=== PATIENT | female | born 1990 ===

== ENCOUNTER → 2021-06-07 11:05 | Outpatient (BNVA) | payer MEDICAID, SELFPAY | PROVIDERS: Family Provider Obstetrics & Gynecology; PCP Family Medicine; Visit Provider Nurse Practitioner Women's Health | DX: Z34.80 Encounter for supervision of other normal pregnancy, unspecified trimester (principal) | CPT/HCPCS: 81000 ==

== ENCOUNTER → 2021-07-05 09:32 | Outpatient (BNVA) | payer MEDICAID, SELFPAY | PROVIDERS: Family Provider Obstetrics & Gynecology; PCP Family Medicine; Visit Provider Obstetrics & Gynecology | DX: Z34.80 Encounter for supervision of other normal pregnancy, unspecified trimester (principal) | CPT/HCPCS: 80307; 81000; 84443; 85025; 86592; 86762; 86803; 86850; 86900; 87086; 87340; 87491; 87591; 87624; 87661 ==

== ENCOUNTER → 2021-07-19 09:34 | Outpatient (BNVA) | payer MEDICAID, SELFPAY | PROVIDERS: Family Provider Obstetrics & Gynecology; PCP Family Medicine; Visit Provider Obstetrics & Gynecology | DX: Z34.90 Encounter for supervision of normal pregnancy, unspecified, unspecified trimester (principal) | CPT/HCPCS: 84315; 87086 ==

== ENCOUNTER → 2021-08-10 13:18 | Outpatient (BNVA) | payer MEDICAID, SELFPAY | PROVIDERS: Family Provider Obstetrics & Gynecology; PCP Family Medicine; Visit Provider Obstetrics & Gynecology | DX: Z34.90 Encounter for supervision of normal pregnancy, unspecified, unspecified trimester (principal) | CPT/HCPCS: 84315; 87086 ==

== ENCOUNTER → 2021-10-12 15:10 | Outpatient (BNVA) | payer MEDICAID, SELFPAY | PROVIDERS: Family Provider Obstetrics & Gynecology; PCP Family Medicine; Visit Provider Obstetrics & Gynecology | DX: Z34.90 Encounter for supervision of normal pregnancy, unspecified, unspecified trimester (principal) | CPT/HCPCS: 84315; 87086 ==

== ENCOUNTER → 2021-11-02 08:22 | Outpatient (BNVA) | payer MEDICAID, SELFPAY | PROVIDERS: Family Provider Obstetrics & Gynecology; PCP Family Medicine; Visit Provider Obstetrics & Gynecology | DX: O21.9 Vomiting of pregnancy, unspecified (principal); O20.9 Hemorrhage in early pregnancy, unspecified; Z3A.00 Weeks of gestation of pregnancy not specified | CPT/HCPCS: 82950; 84315; 84443; 85025; 87086 ==

== ENCOUNTER → 2021-11-19 07:57 | Outpatient (BNVA) | payer MEDICAID, SELFPAY | PROVIDERS: Family Provider Obstetrics & Gynecology; PCP Family Medicine; Visit Provider Obstetrics & Gynecology | DX: Z34.80 Encounter for supervision of other normal pregnancy, unspecified trimester (principal) | CPT/HCPCS: 82951; 82952; 84315; 87086; 87106 ==

== ENCOUNTER → 2021-12-05 14:10 | Outpatient (BNVA) | payer MEDICAID, SELFPAY | PROVIDERS: Family Provider Obstetrics & Gynecology; PCP Family Medicine; Visit Provider Obstetrics & Gynecology | DX: Z34.80 Encounter for supervision of other normal pregnancy, unspecified trimester (principal) | CPT/HCPCS: 84315; 87086 ==

== ENCOUNTER → 2021-12-27 09:09 | Outpatient (BNVA) | payer MEDICAID, SELFPAY | PROVIDERS: Family Provider Obstetrics & Gynecology; PCP Family Medicine; Visit Provider Obstetrics & Gynecology | DX: Z34.90 Encounter for supervision of normal pregnancy, unspecified, unspecified trimester (principal) | CPT/HCPCS: 84315; 87081; 87086 ==

== ENCOUNTER → 2022-01-02 13:13 | Outpatient (BNVA) | payer MEDICAID, SELFPAY | PROVIDERS: Family Provider Obstetrics & Gynecology; PCP Family Medicine; Visit Provider Obstetrics & Gynecology | DX: Z34.90 Encounter for supervision of normal pregnancy, unspecified, unspecified trimester (principal) | CPT/HCPCS: 84315; 87086 ==

== ENCOUNTER 2022-01-16 10:56 | Inpatient (IN) | payer MEDICAID, SELFPAY ==
[2022-01-16] VITALS (46 sets, daily range): BP systolic 119–182; BP diastolic 65–104; PULSE 69–95; RESP 16–18; TEMP 35.7–36.8; BMI 34.7
[2022-01-16 08:50] LABS: Actim Prom Negative
--- NOTE | 2022-01-16 09:23 | US_ITS ---
WS: [id number] ULTRASOUND OB LIMITED TECHNIQUE: Limited ultrasound examination of the fetus. CLINICAL INFORMATION: Vaginal Discharge COMPARISON: October 10, 2021 FINDINGS: Cervix is closed measuring 3.6 cm Single interuterine gestation. presentation is vertex Placental location is fundal. Placenta grade: 2 heart rate 131 BPM. Significantly decreased STEPHEN 3.6 cm. US/US OB limited [id number] IMPRESSION: 1. Cervix is closed measuring 3.6 CM. 2. Significantly decreased amniotic fluid volume measuring 3.6 cm, below the 2.5 percentile for gestational age compatible with oligohydramnios 3. presentation is vertex. 4. Placenta is fundal.
[2022-01-16 09:26] LABS: Basophils % 0.2 %; Eosinophils # 0.1 10^3/uL (0.0-0.8); Eosinophils % 0.7 %; Hematocrit 34.6 % (37.0-47.0); Hemoglobin 11.4 g/dL (11.5-15.3); Lymphocytes % 20.8 %; Mean Corpuscular HGB Conc 32.9 g/dL (30.0-36.0); Mean Corpuscular Hemoglobin 27.1 pg (28.0-34.0); Mean Corpuscular Volume 82.2 fl (81-99); Mean Platelet Volume 10.7 fL (7.4-10.4); Monocytes # 0.4 10^3/uL (0.2-0.9); Monocytes % 4.4 %; Neutrophils # 7.15 10^3/uL (1.8-7.7); Neutrophils % 73.6 %; Nucleated Red Blood Cells % 0 %; Platelet Count 362 10^3/cmm (130-400); Red Blood Count 4.21 10^6/uL (4.1-5.3); White Blood Count 9.7 10^3/uL (4.0-10.0)
[2022-01-16 09:29] LABS: Urine Color Yellow (Yellow)
[2022-01-16 09:30] LABS: Add Urine Microscopic? YES; Bilirubin Urine Neg (Negative); Blood Urine 2+ (Negative); Glucose Urine UA Norm (Normal); Ketones Urine Negative (Negative); Leukocyte Esterase Urine 1+ (Negative); Nitrate Urine Negative (Negative); Protein Urine Neg (Negative); Specific Gravity, Urine 1.005 (1.005-1.030); Urine Appearance Clear (CLEAR); Urobilinogen Urine Norm (Negative); pH Urine 7 (5-7)
[2022-01-16 09:32] LABS: Bacteria Urine 1+ /hpf; Mucus Urine 1+ /hpf; RBC Urine 0-4 /hpf (0-2); WBC Urine 0-4 /hpf (0-5)
[2022-01-16 09:33] LABS: Add Urine Culture? No
[2022-01-16 10:08] LABS: Albumin Level 3.5 g/dL (3.5-5.2); Alkaline Phosphatase 168 IU/L (35-105); Blood Urea Nitrogen 9 mg/dL (6-20); Calcium 8.9 mg/dL (8.5-10.5); Carbon Dioxide 20 mmol/L (22-29); Chloride 100 mmol/L (98-107); Globulin 3.8 g/dL (1.3-4.6); Glomerular Filtration Rate 143.9 mL/min (90-130); Glucose 71 mg/dL (65-115); Osmolality Calculated 269 mOsm/kg (285-295); Sodium 131 mmol/L (136-145); Total Bilirubin 0.2 mg/dL (0.15-1.2); Total Protein 7.3 g/dL (6.6-8.7); Uric Acid 4.7 mg/dL (2.4-5.7)
[2022-01-16 10:13] LABS: Alanine Aminotransferase 28 U/L (0-33); Anion Gap 15.4 (5-19); Aspartate Amino Transferase 39 U/L (0-32); Potassium 4.4 mmol/L (3.5-5.1)
[2022-01-16 10:49] LABS: Urine Creatinine 166 mg/dL (28-217)
[2022-01-16 10:50] LABS: UPRO/UCREAT Ratio 0.13 mg/mg CR; Urine Protein Random 22 mg/dL
[2022-01-16 12:02] LABS: Amphetamines Screen Urine Negative (Negative); Barbiturates Screen Urine Negative (Negative); Benzodiazepines Screen Urine Negative (Negative); Cocaine Screen Urine Negative (Negative); Opiate Screen Urine Negative (Negative); PCP Screen Urine Negative (Negative); THC Screen Urine Positive (Negative)
--- NOTE | 2022-01-16 12:06 | PM.OPHPUD ---
Labor & Delivery H&P Update Date of Procedure: January 16, 2022 Date H&P Performed: 01/10/22 H&P update information: I have reviewed H&P completed within last 30 days, I have examined patient prior to procedure and Changes to prior documentation as noted here Changes to previous documentation: The patient presents for PROM at 38w6d. She reports she had a gush at 5:00 am this morning. Testing was negative, however several gushes of fluid were noted by nurse and ultrasound shows oligohydramnios at 3 cm. She will be admitted for augmentation of labor. cervix ./ status is overall very reassuring. Admission Diagnosis:
[2022-01-16] MEDS: miSOPROStol 100 mcg tablet 25 MCG VAGINAL ×2 (12:12→16:15)
[2022-01-16] MEDS: dextrose 5%-lactated ringers 1,000 ML 125 ML IV (21:32)
[2022-01-16] MEDS: oxytocin 30 UNIT/500 ML BAG IV (21:39)
[2022-01-16] MEDS: ampicillin 2,000 MG in sodium chloride 0.9% (plus) 50 ML 100 MG IV (23:51)
[2022-01-17] VITALS (30 sets, daily range): BP systolic 108–153; BP diastolic 53–96; PULSE 65–99; RESP 15–18; TEMP 36.7–37.1
[2022-01-17] MEDS: ondansetron 2 mg/ML SDV 2 mL 4 MG IVP (01:09)
[2022-01-17] MEDS: fentaNYL 50 mcg/mL INJ 2mL IVP (02:03)
[2022-01-17] MEDS: metoclopramide 5 mg/mL SDV 2 mL 10 MG IV (02:33)
[2022-01-17] MEDS: lactated ringers 1,000 ML 999 ML IV (03:30)
--- NOTE | 2022-01-17 04:47 | P.PCNOB_ITS ---
Delivery Note: Date of delivery: January 17, 2022 Pre-delivery diagnoses: Term Post-delivery diagnoses: Term delivered Procedure: Spontaneous vaginal delivery Delivering Physician: Antonio Lang MD Estimated blood loss (mL): 300 Findings: Term male infant Apgars 9/9 Pre-Delivery Course: Ms. Espinosa is a 31 year old patient with an LMP of 03/28/21, and an TIM of 01/24/22, weeks EGA who has been receiving care from [facility]. CC: Onset of labor at term. HPI: Received appropriate care. Daily vitamins since two months prior to conception. labs have all been normal, including negative for HIV. She was found to negative for Group B Strep from screening at 36 weeks. She has gained approximately 21 lbs throughout the . She denies a history of HTN during . Glucose tolerance screening for gestational diabetes was negative. Delivery: The patient was noted to be complete and pushing, so was placed in the dorsal lithotomy position, prepped and draped in the usual sterile fashion for a vaginal delivery. Pt. Noted to have no epidural anesthesia. At 0436 the patient delivered a viable termmale infant weighing 2870 g with scores of 9 and 9 at one and five minutes, respectively. The vertex was delivered spontaneously over intact perineum. The patient was asked to push and the head delivered spontaneously in the ANNA position, over an intact perineum. A nuchal cord was checked and none noted. The anterior shoulder delivered easily and the posterior shoulder followed. The remainder of the infant was easily delivered and the oropharynx and nasopharynx was bulb suctioned. The was noted to have spontaneous cry and spontaneous movement of all four extremities. The cord was clamped x 2 and cut and noted to have 2 arteries and one vein. The was passed to the mother's abdomen where nursing personnel were in attendance. Cord blood sample was then obtained. The placenta delivered intact spontaneously and the uterus was explored. 20 units of Pitocin was placed in the IV bag to firm the uterus. Examination of the cervix and vaginal vault did not reveal any lacerations. A vaginal pack was then placed. Examination of the perineum showed no lacerations. The vaginal pack was then removed. The patient tolerated this procedure well, and recovered in L&D with her in their LDR room. All sponge and needle counts were correct. History History History 4 Term 1 Miscarriages/Ectopic 2 0 Living Children 1 Coding Level of Care Code Acute Line Haul Owner Operator for Chg Beto
[2022-01-17] MEDS: ibuprofen 800 mg tablet PO ×2 (08:28→16:03)
[2022-01-17] MEDS: docusate sodium 100 mg Capsule PO (08:28)
[2022-01-17] MEDS: alum-mag-hydroxide-sime 30 mL UDC PO (08:28)
[2022-01-17] MEDS: prenatal vitamin Capsule 1 CAP PO (08:28)
--- NOTE | 2022-01-17 08:46 | PC.NURSE ---
Ambulated to room.
[2022-01-17 16:38] LABS: Hematocrit 31.2 % (37.0-47.0); Hemoglobin 10.3 g/dL (11.5-15.3); Mean Corpuscular Hemoglobin 27.2 pg (28.0-34.0); Mean Corpuscular Volume 82.5 fl (81-99); Mean Platelet Volume 10.3 fL (7.4-10.4); Platelet Count 357 10^3/cmm (130-400); Red Blood Count 3.78 10^6/uL (4.1-5.3); Red Cell Distribution Width 14.6 % (12.1-15.1); White Blood Count 16.7 10^3/uL (4.0-10.0)
--- NOTE | 2022-01-18 01:11 | PC.NURSE ---
baby found asleep with mom in bed. baby placed in crib and mom educated on safe sleeping practices at this time
[2022-01-18] MEDS: HYDROcodone-acetaminophen 5-325 mg Tablet PO (04:56)
[2022-01-18 04:58] VITALS: BP 132/86; PULSE 76; RESP 16; TEMP 36.8
[2022-01-18] MEDS: prenatal vitamin Capsule 1 CAP PO (08:36)
[2022-01-18] MEDS: ibuprofen 800 mg tablet PO ×2 (08:36→14:31)
[2022-01-18] MEDS: docusate sodium 100 mg Capsule PO (08:36)
[2022-01-18 09:05] VITALS: BP 156/116; PULSE 77; RESP 18; TEMP 36.6; O2SAT 97
[2022-01-18 16:00] VITALS: BP 135/91; PULSE 70; RESP 18; TEMP 36.9; O2SAT 98
--- NOTE | 2022-01-18 16:31 | P.DS_ITS ---
Discharge Providers SMOKING PIPE LINER Date of Admission: 01/16/22 10:56 Date of Discharge: 01/21/22 Attending Provider at Admission: Antonio Lang MD Attending Provider at Discharge: Antonio Lang MD Primary SMOKING PIPE LINER: Karla Primary Care Provider: Lyn Torre MD Reason for Visit Reason for Visit: possible ROM Brief History: Ms. Espinosa is a 31 year old patient with an LMP of 03/28/21, and an TIM of 01/24/22, Hospital Course Hospital Course Mrs. Espinosa 31-year-old female presented to L&D with PROM at 38w6d. She had a spontaneous vaginal delivery without complication, delivered term AGARS 04/05 with a birthweight of 2870 g. Information Peripartum Data: Infant Delivery Method: Vaginal Physical Exam Narrative: GA; alert and oriented x 3 HEENT: normal Breasts: engorged Nipples - skin intact Lungs; clear to auscultation Heart: regular rhythm, no murmurs. Abd: Appropriately tender. BS+. Uterine fundus below umbilicus. No Fundal Tenderness. Perineum: normal lochia. Extremities: no edema, no cyanosis, no tenderness. History History History 4 Term 1 Miscarriages/Ectopic 2 0 Living Children 1 Discharge Data Studies Completed and Pending Completed Studies During Hospitalization Category Date Time Status US OB limited [id number] Stat Ultrasound 01/16/22 09:23 Completed Radiology Impressions Obstetrics Ultrasound 01/16/22 09:23 IMPRESSION: 1. Cervix is closed measuring 3.6 CM. 2. Significantly decreased amniotic fluid volume measuring 3.6 cm, below the 2.5 percentile for gestational age compatible with oligohydramnios 3. presentation is vertex. 4. Placenta is fundal. Laboratory Results WBC 16.7 10^3/uL (4.0-10.0) H 01/17/22 16:30 RBC 3.78 10^6/uL (4.1-5.3) L 01/17/22 16:30 Hgb 10.3 g/dL (11.5-15.3) L 01/17/22 16:30 Hct 31.2 % (37.0-47.0) L 01/17/22 16:30 MCV 82.5 fl (81-99) 01/17/22 16:30 MCH 27.2 pg (28.0-34.0) L 01/17/22 16:30 MCHC 33.0 g/dL (30.0-36.0) 01/17/22 16:30 RDW 14.6 % (12.1-15.1) 01/17/22 16:30 Plt Count 357 10^3/cmm (130-400) 01/17/22 16:30 MPV 10.3 fL (7.4-10.4) 01/17/22 16:30 Neut % (Auto) 73.6 % 01/16/22 08:55 Lymph % (Auto) 20.8 % 01/16/22 08:55 [place] % (Auto) 4.4 % 01/16/22 08:55 Eos % (Auto) 0.7 % 01/16/22 08:55 Baso % (Auto) 0.2 % 01/16/22 08:55 Neut # (Auto) 7.15 10^3/uL (1.8-7.7) 01/16/22 08:55 Lymph # (Auto) 2.0 10^3/uL (0.8-4.8) 01/16/22 08:55 [place] # (Auto) 0.4 10^3/uL (0.2-0.9) 01/16/22 08:55 Eos # (Auto) 0.1 10^3/uL (0.0-0.8) 01/16/22 08:55 Baso # (Auto) 0.0 10^3/uL (0.0-0.1) 01/16/22 08:55 Nucleated RBC % (auto) 0 % 01/16/22 08:55 Nucleated RBCs # 0.0 /100WBC 01/16/22 08:55 Sodium 131 mmol/L (136-145) L 01/16/22 08:55 Potassium 4.4 mmol/L (3.5-5.1) 01/16/22 08:55 Chloride 100 mmol/L (98-107) 01/16/22 08:55 Carbon Dioxide 20 mmol/L (22-29) L 01/16/22 08:55 Anion Gap 15.4 (5-19) 01/16/22 08:55 BUN 9 mg/dL (6-20) 01/16/22 08:55 Creatinine 0.5 mg/dL (0.5-0.9) 01/16/22 08:55 GFR Calculation 143.9 mL/min (90-130) H 01/16/22 08:55 Glucose 71 mg/dL (65-115) 01/16/22 08:55 Calculated Osmolality 269 mOsm/kg (285-295) L 01/16/22 08:55 Uric Acid 4.7 mg/dL (2.4-5.7) 01/16/22 08:55 Calcium 8.9 mg/dL (8.5-10.5) 01/16/22 08:55 Total Bilirubin 0.2 mg/dL (0.15-1.2) 01/16/22 08:55 AST 39 U/L (0-32) H 01/16/22 08:55 ALT 28 U/L (0-33) 01/16/22 08:55 Alkaline Phosphatase 168 IU/L (35-105) H 01/16/22 08:55 Total Protein 7.3 g/dL (6.6-8.7) 01/16/22 08:55 Albumin 3.5 g/dL (3.5-5.2) 01/16/22 08:55 Globulin 3.8 g/dL (1.3-4.6) 01/16/22 08:55 Insulin-like GF I Negative 01/16/22 08:20 Urine Color Yellow (Yellow) 01/16/22 08:55 Urine Appearance Clear (CLEAR) 01/16/22 08:55 Urine pH 7 (5-7) 01/16/22 08:55 Ur Specific [place] 1.005 (1.005-1.030) 01/16/22 08:55 Urine Protein Neg (Negative) 01/16/22 08:55 Urine Glucose (UA) Norm (Normal) 01/16/22 08:55 Urine Ketones Negative (Negative) 01/16/22 08:55 Urine Blood 2+ (Negative) H 01/16/22 08:55 Urine Nitrate Negative (Negative) 01/16/22 08:55 Urine Bilirubin Neg (Negative) 01/16/22 08:55 Urine Urobilinogen Norm mg/dL (Negative) 01/16/22 08:55 Ur Leukocyte Esterase 1+ (Negative) H 01/16/22 08:55 Urine RBC 0-4 /hpf (0-2) H 01/16/22 08:55 Urine WBC 0-4 /hpf (0-5) H 01/16/22 08:55 Ur Squamous Epith Cells 5-10 /hpf (0-5) H 01/16/22 08:55 Amorphous Sediment Not Reportable 01/16/22 08:55 Urine Bacteria 1+ /hpf (NONE) H 01/16/22 08:55 Urine Mucus 1+ /hpf 01/16/22 08:55 U Random Total Protein 22 mg/dL 01/16/22 08:55 Urine Creatinine 166 mg/dL (28-217) 01/16/22 08:55 Protein/Creatinin Ratio 0.13 mg/mg CR 01/16/22 08:55 Urine Opiates Screen Negative ng/mL (Negative) 01/16/22 11:25 Ur Barbiturates Screen Negative ng/mL (Negative) 01/16/22 11:25 Ur Phencyclidine Scrn Negative ng/mL (Negative) 01/16/22 11:25 Ur Amphetamines Screen Negative ng/mL (Negative) 01/16/22 11:25 U Benzodiazepines Scrn Negative ng/mL (Negative) 01/16/22 11:25 Urine Cocaine Screen Negative ng/mL (Negative) 01/16/22 11:25 U Marijuana (THC) Screen Positive ng/mL (Negative) H 01/16/22 11:25 Vitals Last Vital Signs Temp 97.9 F 01/18/22 09:05 Pulse 77 01/18/22 09:05 Resp 18 01/18/22 09:05 BP 156/116 01/18/22 09:05 Pulse Ox 97 01/18/22 09:05 Discharge Plan Discharge Patient Disposition: Home Condition: Stable Prescriptions: New ibuprofen 800 mg tablet 800 mg PO TID PRN (Reason: pain) Qty: 60 0RF Iron (ferrous sulfate) 325 mg (65 mg iron) tablet 325 mg PO BID Qty: 60 0RF Colace 100 mg capsule 100 mg PO BID Qty: 60 0RF acetaminophen 325 mg capsule 325 mg PO Q4H PRN (Reason: fever or pain) Qty: 60 0RF Continued ondansetron HCl [Zofran] 4 mg tablet 4 mg PO Q6H PRN (Reason: Nausea) 0RF albuterol sulfate 90 mcg/actuation HFA aerosol inhaler 2 puff inhalation Q6H PRN (Reason: Shortness Of Breath) 0RF DHA 200 mg capsule 200 mg PO DAILY 0RF famotidine [Pepcid AC] 10 mg tablet 10 mg PO DAILY 0RF ferrous sulfate [Lindsay-Time] 325 mg (65 mg iron) tablet 325 mg PO TID 0RF Discharge Orders: Discharge Order (Routine); Ordered 01/18/22 Ordered By: Antonio Lang Referrals: Antonio Lang MD [Family Provider] - 6 Weeks Discharge Diet: Usual diet Discharge Activity: Limit activity as instructed Patient Instructions: Depression (DC), Bleeding (GEN), Preeclampsia and Eclampsia After Delivery (GEN), Breast Care for the Mother (GEN), OB Discharge Report, OB Food/Drug Interaction Guide, OB Care at Home, Opioid Safety, OB Home Care, OB Vaginal Deliveries - [facility], Abnormal Bleeding Activity Restrictions/Additional Instructions: 1. Please call [facility] on next working day to make your post appointment in 6 weeks. 2. Please stay home until you come back to the clinic on first post-operative check up. 3. Please follow instructions on your medications CAREFULLY. 4. If you have abdominal incision, do not cover it unless dressing is necessary because of drainage. OK to shower, but avoid bath. Leave steri-strips until they fall off. If they are still on one week after surgery, you may remove them. 5. If you had vaginal surgery or vaginal repair, Dr. Lang may instruct you to take SITZ bath. 6. Yellow, blood tinged odorous vaginal discharge is usually normal after hysterectomy or vaginal surgeries. 7. No sexual intercourse, tampons, or douches until you are completely released from the post-operative care. 8. Avoid constipation by eating right and maybe using some Metamucil or Milk of Magnesia. 9. All prescription refills are given during the working hours. Please do no wait till it runs out. Call the clinic at [phone] before your medication runs out. The clinic will get in touch with your doctor to prescribe medications if necessary. 10. Please remain within 40 mile radius from our hospital because emergencies do happen now and then during the post-operative period. 11. If you have stairs at home, take one step at a time slowly and minimize the number of trips. It helps to stay in one floor for the next few days. No lifting except what you can lift by one hand until you are released from the post-operative care. 12. Driving is discouraged until you are well healed. It may be 3-4 weeks before you feel strong enough to drive. You should be able to turn and look through the rear window without pain and you should be able to push the brake pedal very hard without pain before you drive. No fast rules, but SAFETY should be your primary concern. DO NOT drive if you are on sedating medications such as narcotics. 13. Call the clinic (during working hours) to make urgent appointment or go to the Emergency room, if any of the following occurs: i. Vaginal bleeding becomes heavy, more than a period. ii. Incision becomes red and sore, or drains pus. iii. Your temperature is over 100.4 or you have chill. iv. IV site becomes red and swollen (a little ``knot?? is usually OK) v. Persistent nausea and vomiting vi. Persistent constipation or diarrhea vii. Rash or allergic reaction to medications. Discharge Attestations SMOKING PIPE LINER Time Spent in Discharge Care*: greater than 30 min Coding Level of Care Code Acute Sprinkling System Irrigator for Sarkis Pérez
[2022-01-18 19:50] VITALS: BP 121/76; PULSE 79; RESP 16; TEMP 36.8; O2SAT 99
== END 2022-01-18 19:50 | disposition home or self-care (01) | DRG 806 ==
LOC: OPOB 10:58 → OBGYN 11:03
PROVIDERS: Admitting Provider Obstetrics & Gynecology; Family Provider Obstetrics & Gynecology; PCP Family Medicine; Visit Provider Obstetrics & Gynecology
DX: O41.03X0 Oligohydramnios, third trimester, not applicable or unspecified (principal); O99.324 Drug use complicating childbirth; Z37.0 Single live birth; F12.90 Cannabis use, unspecified, uncomplicated; Z3A.38 38 weeks gestation of pregnancy
CPT/HCPCS: 36415; 59025; 59409; 76815; 80053; 80306; 81001; 82570; 83986; 84112; 84156; 84550; 85025; 85027; 99211; J0290; J2405; J2765; J3010